=== PATIENT | female | born 1960 | race Two or more races ===

== ENCOUNTER 2018-01-17 08:29 | Emergency (ER) | payer OTHER ==
[~2018-01-17] VITALS: Ht 160 cm; Wt 81.6 kg
[~2018-01-17 08:29] MED LIST: AMOX1TAB5 PO; HYZAAR 50-12.1 UDTAB; HYZAAR 50-12.1 UDTAB PO; HYZAAR 50-12.51 EACH PO; ULTRAM50 MG PO; ZOCOR20 MG PO
== END 2018-01-17 09:26 | disposition home or self-care (01) ==
LOC: ER 08:29
DX: H10.89 Other conjunctivitis (principal)

== ENCOUNTER 2018-05-05 14:52 | Outpatient (CLI) | payer OTHER | END 2018-05-05 14:58 | disposition home or self-care (01) | LOC: MAMO-SONO 14:52 | DX: Z12.31 Encounter for screening mammogram for malignant neoplasm of breast (principal) ==

== ENCOUNTER 2018-05-15 11:21 | Outpatient (CLI) | payer OTHER | END 2018-05-15 11:26 | disposition home or self-care (01) | LOC: LAB 11:21 | DX: Z01.419 Encounter for gynecological examination (general) (routine) without abnormal findings (principal); D64.89 Other specified anemias; E03.8 Other specified hypothyroidism; E55.9 Vitamin D deficiency, unspecified; E78.4 Other hyperlipidemia; Z12.11 Encounter for screening for malignant neoplasm of colon; N39.0 Urinary tract infection, site not specified ==

== ENCOUNTER 2018-10-01 10:15 | Emergency (ER) | payer OTHER ==
[~2018-10-01] VITALS: Ht 160 cm; Wt 83.5 kg
[2018-10-01] MEDS ORDERED: COZAAR100 MG (10:18)
== END 2018-10-01 13:36 | disposition home or self-care (01) ==
LOC: ER 10:15
DX: B34.8 Other viral infections of unspecified site (principal); R07.89 Other chest pain

== ENCOUNTER 2019-05-08 11:48 | Outpatient (CLI) | payer OTHER ==
[~2019-05-08 11:48] MED LIST changes: +COZAAR100 MG
== END 2019-05-08 16:30 | disposition home or self-care (01) ==
LOC: LAB 11:48
DX: E78.00 Pure hypercholesterolemia, unspecified (principal); I10 Essential (primary) hypertension

== ENCOUNTER 2019-12-12 14:20 | Emergency (ER) | payer OTHER ==
[~2019-12-12] VITALS: Ht 160 cm; Wt 86.2 kg
[2019-12-12] MEDS ORDERED: VASOTEC20 M1 (15:09)
[2019-12-12] MEDS ORDERED: CIPROFLOXACIN HC5 ML (15:09)
== END 2019-12-12 17:10 | disposition home or self-care (01) ==
LOC: ER 14:20
DX: H10.13 Acute atopic conjunctivitis, bilateral (principal)

== ENCOUNTER 2020-06-14 06:45 | Outpatient (CLI) | payer OTHER ==
[~2020-06-14 06:45] MED LIST changes: +CIPROFLOXACIN HC5 ML; +VASOTEC20 M1
== END 2020-06-14 07:01 | disposition home or self-care (01) ==
LOC: LAB 06:45
DX: E03.8 Other specified hypothyroidism (principal); R73.03 Prediabetes; E78.49 Other hyperlipidemia

== ENCOUNTER 2020-08-09 13:00 | Outpatient (CLI) | payer OTHER | END 2020-08-09 15:00 | disposition home or self-care (01) | LOC: PPH VACUNA 13:00 | DX: Z23 Encounter for immunization (principal) ==

== ENCOUNTER → 2021-08-10 08:19 | Outpatient (CLI) | payer OTHER | END | disposition home or self-care (01) | LOC: LAB 08:19 | PROVIDERS: ATTEND Internal Medicine Cardiovascular Disease | DX: I10 Essential (primary) hypertension (principal); E11.9 Type 2 diabetes mellitus without complications; E03.8 Other specified hypothyroidism; E78.2 Mixed hyperlipidemia; E55.9 Vitamin D deficiency, unspecified; Z12.11 Encounter for screening for malignant neoplasm of colon ==

== ENCOUNTER 2021-08-10 10:27 | Outpatient (CLI) | payer OTHER | END 2021-08-10 10:30 | disposition home or self-care (01) | LOC: RAD 10:27 | PROVIDERS: ATTEND Internal Medicine Cardiovascular Disease | DX: I10 Essential (primary) hypertension (principal); K44.9 Diaphragmatic hernia without obstruction or gangrene ==

== ENCOUNTER 2021-08-24 08:55 | Outpatient (CLI) | payer OTHER | END 2021-08-24 08:59 | disposition home or self-care (01) | LOC: MAMO-SONO 08:55 | PROVIDERS: ATTEND Internal Medicine Cardiovascular Disease | DX: D24.1 Benign neoplasm of right breast (principal); Z12.31 Encounter for screening mammogram for malignant neoplasm of breast; N64.89 Other specified disorders of breast ==

== ENCOUNTER → 2021-08-24 09:54 | Outpatient (CLI) | payer OTHER | END | disposition home or self-care (01) | LOC: LAB 09:54 | PROVIDERS: ATTEND Internal Medicine Cardiovascular Disease | DX: I10 Essential (primary) hypertension (principal); E11.9 Type 2 diabetes mellitus without complications; E03.8 Other specified hypothyroidism; E78.2 Mixed hyperlipidemia; E55.9 Vitamin D deficiency, unspecified; Z12.11 Encounter for screening for malignant neoplasm of colon ==

== ENCOUNTER 2021-10-12 08:00 | Outpatient (CLI) | payer OTHER | END 2021-10-12 08:30 | disposition home or self-care (01) | LOC: PPH VACUNA 08:00 | PROVIDERS: ATTEND Emergency Medicine Pediatric Emergency Medicine | DX: Z23 Encounter for immunization (principal) ==

== ENCOUNTER 2021-12-20 07:14 | Outpatient (CLI) | payer OTHER | END 2021-12-20 07:16 | disposition home or self-care (01) | LOC: LAB 07:14 | PROVIDERS: ATTEND Internal Medicine Cardiovascular Disease | DX: I10 Essential (primary) hypertension (principal); E11.9 Type 2 diabetes mellitus without complications; E03.9 Hypothyroidism, unspecified ==

== ENCOUNTER 2022-02-26 08:54 | Outpatient (CLI) | payer OTHER | END 2022-02-26 09:08 | disposition home or self-care (01) | LOC: MAMO-SONO 08:54 | PROVIDERS: ATTEND Internal Medicine Cardiovascular Disease | DX: N63.11 Unspecified lump in the right breast, upper outer quadrant (principal) ==

== ENCOUNTER 2022-08-08 09:58 | Outpatient (CLI) | payer OTHER | END 2022-08-08 10:03 | disposition home or self-care (01) | LOC: PPH VACUNA 09:58 | PROVIDERS: ATTEND Emergency Medicine Pediatric Emergency Medicine | DX: Z23 Encounter for immunization (principal) ==

== ENCOUNTER 2023-01-12 11:39 | Outpatient (CLI) | payer OTHER | END 2023-01-12 11:41 | disposition home or self-care (01) | LOC: RAD 11:39 | PROVIDERS: ATTEND Internal Medicine | DX: M89.9 Disorder of bone, unspecified (principal); M54.50 Low back pain, unspecified; Z13.820 Encounter for screening for osteoporosis; I10 Essential (primary) hypertension; Z01.810 Encounter for preprocedural cardiovascular examination; E55.9 Vitamin D deficiency, unspecified; E66.8 Other obesity; Z12.11 Encounter for screening for malignant neoplasm of colon; Z12.31 Encounter for screening mammogram for malignant neoplasm of breast ==

== ENCOUNTER 2023-01-26 09:35 | Outpatient (CLI) | payer OTHER | END 2023-01-26 09:36 | disposition home or self-care (01) | LOC: LAB 09:35 | PROVIDERS: ATTEND Internal Medicine | DX: I10 Essential (primary) hypertension (principal); M54.50 Low back pain, unspecified; Z01.810 Encounter for preprocedural cardiovascular examination; E55.9 Vitamin D deficiency, unspecified; E66.8 Other obesity; M89.9 Disorder of bone, unspecified; Z12.11 Encounter for screening for malignant neoplasm of colon; Z12.31 Encounter for screening mammogram for malignant neoplasm of breast; Z13.820 Encounter for screening for osteoporosis ==

== ENCOUNTER → 2023-03-07 | Outpatient (CLI) | payer OTHER | END | disposition home or self-care (01) | LOC: NUCLEAR 11:00 | PROVIDERS: ATTEND Internal Medicine | DX: M89.9 Disorder of bone, unspecified (principal); M54.59 Other low back pain; I10 Essential (primary) hypertension; E55.9 Vitamin D deficiency, unspecified; E66.8 Other obesity; Z12.11 Encounter for screening for malignant neoplasm of colon; Z12.31 Encounter for screening mammogram for malignant neoplasm of breast; Z13.820 Encounter for screening for osteoporosis ==

== ENCOUNTER 2023-03-15 10:38 | Outpatient (CLI) | payer OTHER | END 2023-03-15 10:50 | disposition home or self-care (01) | LOC: SONOGRAMA 10:38 | PROVIDERS: ATTEND Podiatrist | DX: M76.61 Achilles tendinitis, right leg (principal); M72.2 Plantar fascial fibromatosis ==

== ENCOUNTER 2023-03-22 11:19 | Outpatient (CLI) | payer OTHER | END 2023-03-22 13:14 | disposition home or self-care (01) | LOC: MAMO-SONO 11:19 | PROVIDERS: ATTEND Internal Medicine | DX: Z12.31 Encounter for screening mammogram for malignant neoplasm of breast (principal) ==

== ENCOUNTER 2023-06-07 15:03 | Outpatient (CLI) | payer OTHER | END 2023-06-07 23:00 | disposition home or self-care (01) | LOC: LAB 15:03 | DX: U07.1 COVID-19 (principal) ==

== ENCOUNTER 2023-06-22 10:42 | Outpatient (CLI) | payer OTHER | END 2023-06-22 10:46 | disposition home or self-care (01) | LOC: LAB 10:42 | PROVIDERS: ATTEND Internal Medicine | DX: I10 Essential (primary) hypertension (principal); E55.9 Vitamin D deficiency, unspecified; E66.8 Other obesity; M89.9 Disorder of bone, unspecified; Z01.810 Encounter for preprocedural cardiovascular examination; Z12.11 Encounter for screening for malignant neoplasm of colon; Z12.31 Encounter for screening mammogram for malignant neoplasm of breast; Z13.820 Encounter for screening for osteoporosis ==

== ENCOUNTER 2023-08-17 11:15 | Outpatient (CLI) | payer OTHER ==
[2023-08-17 12:14] LABS: HEMATOCRIT 43.8 % (36.0-45.00); HEMOGLOBIN 14.8 g/dL (12.0-15.00); MEAN CELL VOLUME 89.5 fL (80.00-100.00); MEAN CORPUSCULAR HEMOGLOBIN 30.3 pg (27.00-32.0); MEAN CORPUSCULAR HGB CONC 33.9 g/dl (32.0-36.0); PLATELET COUNT 274 K/uL (150-450); RED BLOOD COUNT 4.89 M/uL (4.00-6.00); RED CELL DISTRIBUTION WIDTH 14.5 % (11.5-14.5)
[2023-08-17 12:44] LABS: INR 0.98; PROTHROMBIN TIME 10.3 SECONDS (9.0-11.5)
[2023-08-17 12:47] LABS: ALBUMIN 3.4 gm/dL (3.4-5.0); BILIRUBIN TOTAL 0.48 mg/dL (0.3-1.2); CALCIUM 9.5 mg/dL (8.5-10.1); CREATININE SERUM 0.83 mg/dL (0.55-1.02); GFR 69.66; GLOBULINA 3.3 G/DL (2.4-3.5); POTASSIUM 4.6 mEq/L (3.5-5.1); TOTAL PROTEIN 6.7 gm/dL (6.4-8.2)
== END 2023-08-17 11:43 | disposition home or self-care (01) ==
LOC: LAB 11:15
DX: R07.89 Other chest pain (principal); M19.071 Primary osteoarthritis, right ankle and foot; E11.9 Type 2 diabetes mellitus without complications; D68.9 Coagulation defect, unspecified; N39.0 Urinary tract infection, site not specified

== ENCOUNTER 2023-11-02 10:28 | Outpatient (CLI) | payer OTHER ==
[2023-11-02 11:17] LABS: HEMATOCRIT 43.2 % (36.0-45.00); HEMOGLOBIN 14.5 g/dL (12.0-15.00); MEAN CELL VOLUME 88.6 fL (80.00-100.00); MEAN CORPUSCULAR HEMOGLOBIN 29.7 pg (27.00-32.0); MEAN CORPUSCULAR HGB CONC 33.6 g/dl (32.0-36.0); PLATELET COUNT 297 K/uL (150-450); RED BLOOD COUNT 4.87 M/uL (4.00-6.00); RED CELL DISTRIBUTION WIDTH 14.9 % (11.5-14.5)
[2023-11-02 11:33] LABS: PH,URINE 7.5 (5.0-8.0); URINE APPEARANCE Clear; URINE BILIRRUBIN Negative (NEGATIVE); URINE BLOOD Negative; URINE COLOR Yellow; URINE GLUCOSE Negative (NEGATIVE); URINE LEUKOCYTE Negative; URINE NITRATE Negative; URINE PROTEIN Negative (NEGATIVE); URINE UROBILINOGEN 0.2 E.U./dl
[2023-11-02 11:37] LABS: URINE BACTERIA 117.1 uL (0.0-1933); URINE EPITHELIAL CELLS 9.5 uL (0.0-38.8); URINE WBC 2.9 uL (0.0-23.2)
[2023-11-02 11:42] LABS: URINE RBC 1.7 uL (0.0-20.8)
[2023-11-02 12:19] LABS: ALBUMIN 3.3 gm/dL (3.4-5.0); BILIRUBIN TOTAL 0.42 mg/dL (0.3-1.2); CALCIUM 8.8 mg/dL (8.5-10.1); CREATININE SERUM 0.88 mg/dL (0.55-1.02); FREE TRIODOTIRONINE 2.45 pg/ml (2.18-3.98); GFR 64.9; GLOBULINA 3.4 G/DL (2.4-3.5); POTASSIUM 4.02 mEq/L (3.5-5.1); T4 FREE 0.85 NG/ML (0.76-1.46); T4 TOTAL 7.24 UG/DL (4.8-13.9); TOTAL PROTEIN 6.7 gm/dL (6.4-8.2); TSH 0.962 uIU/mL (0.358-3.74)
== END 2023-11-02 10:29 | disposition home or self-care (01) ==
LOC: LAB 10:28
PROVIDERS: ATTEND Emergency Medicine Pediatric Emergency Medicine
DX: Z01.810 Encounter for preprocedural cardiovascular examination (principal); M54.59 Other low back pain; E55.9 Vitamin D deficiency, unspecified; E66.8 Other obesity; N89.9 Noninflammatory disorder of vagina, unspecified; E03.9 Hypothyroidism, unspecified; Z12.11 Encounter for screening for malignant neoplasm of colon; Z12.31 Encounter for screening mammogram for malignant neoplasm of breast; Z13.820 Encounter for screening for osteoporosis; I10 Essential (primary) hypertension

== ENCOUNTER 2023-11-30 00:51 | Emergency (ER) | payer OTHER ==
[~2023-11-30] VITALS: Ht 160 cm; Wt 86.2 kg
[2023-11-30] MEDS ORDERED: AVALIDE 300-121 EACH PO (01:02)
[2023-11-30 02:02] LABS: HEMATOCRIT 40.7 % (36.0-45.00); HEMOGLOBIN 13.6 g/dL (12.0-15.00); MEAN CELL VOLUME 88.4 fL (80.00-100.00); MEAN CORPUSCULAR HEMOGLOBIN 29.6 pg (27.00-32.0); MEAN CORPUSCULAR HGB CONC 33.5 g/dl (32.0-36.0); PLATELET COUNT 335 K/uL (150-450); RED CELL DISTRIBUTION WIDTH 14.4 % (11.5-14.5)
== END 2023-11-30 04:01 | disposition home or self-care (01) ==
LOC: ER 00:52
DX: J06.9 Acute upper respiratory infection, unspecified (principal); R05.9 Cough, unspecified; Z20.822 Contact with and (suspected) exposure to COVID-19

== ENCOUNTER 2024-01-07 03:34 | Emergency (ER) | payer OTHER ==
[~2024-01-07] VITALS: Ht 160 cm; Wt 86.2 kg
[~2024-01-07 03:34] MED LIST changes: +AVALIDE 300-121 EACH PO
[2024-01-07] MEDS ORDERED: CEFTRIAXONE SODIUM 1,000 MG VIAL IM STA (05:05)
[2024-01-07] MEDS ORDERED: KETOROLAC TROMETHAMINE 60 MG VIAL IM STA (05:05)
[2024-01-07] MEDS ORDERED: GUAIFENESIN/DEXTROMETHORPHAN 100 MG/5 ML ML PO STA (05:06)
== END 2024-01-07 05:29 | disposition home or self-care (01) ==
LOC: ER 03:34
DX: J06.9 Acute upper respiratory infection, unspecified (principal)